=== PATIENT | female | born 1960 | race Caucasian/White ===

== ENCOUNTER 2016-08-04 14:55 | Emergency (ER) | payer MEDICAID ==
[~2016-08-04] VITALS: Ht 157.5 cm; Wt 122.5 kg
[~2016-08-04 14:55] MED LIST: CALC1TAB91 PO; FLUO20CA36 PO; GABA100C PO; HYDR-3326 PO; HYDR2TAB35 PO; LEVO50TA8 PO; RABE20TA5 PO; TRAM50TA2 PO; TRAZ-144 PO; [UNRECOGNIZED DRUG - CODE] PO
[2016-08-04] MEDS ORDERED: IV NS 0.9% 1,000 ML ONE (15:59)
[2016-08-04] MEDS ORDERED: METOCLOPRAMIDE HCL 10 MG/2 ML VIAL ONE (15:59)
[2016-08-04] MEDS ORDERED: MORPHINE SULFATE INJ 2 MG/ML DISP.SYRIN ONE (15:59)
[2016-08-04] MEDS ORDERED: diphenhydrAMINE HCL 50 MG/ML VIAL ONE (15:59)
[2016-08-04] MEDS ORDERED: IV SET PRIMARY 1 EA INFUS.SET MC ONE (15:59)
[2016-08-04] MEDS ORDERED: diphenhydrAMINE HCL 50 MG/ML VIAL IV ONE (16:00)
[2016-08-04] MEDS ORDERED: IV NS 0.9% 1,000 ML BAG IV ONE (16:00)
[2016-08-04] MEDS ORDERED: METOCLOPRAMIDE HCL 10 MG/2 ML VIAL IV ONE (16:00)
[2016-08-04] MEDS ORDERED: MORPHINE SULFATE INJ 2 MG/ML DISP.SYRIN IV ONE (16:00)
[2016-08-04 16:10] LABS: MONOCYTES # (AUTO) 0.5 /CMM (0.1-1.30); NEUTROPHILS # (AUTO) 3.5 /CMM (1.8-8.9)
[2016-08-04 16:15] LABS: BASOPHILS % (AUTO) 0.7 % (0.0-2.0); DIFF TOTAL % 100 %; EOSINOPHILS # (AUTO) 0.1 /CMM (0.0-0.7); EOSINOPHILS % (AUTO) 2.3 % (0.0-6.0); HEMATOCRIT 43 % (33-45); HEMOGLOBIN 14.4 g/dL (11.5-14.8); LYMPHOCYTES % (AUTO) 33.1 % (20.0-44.0); MEAN CORPUSCULAR HEMOGLOBIN 30 PG (26.0-33.0); MEAN CORPUSCULAR HGB CONC 34 g/dl (31.0-36.0); MEAN CORPUSCULAR VOLUME 89 fL (82-100); MONOCYTES % (AUTO) 7.4 % (2.0-12.0); NEUTROPHILS % (AUTO) 56.5 % (43.0-81.0); PLATELET COUNT (AUTO) 302 /CMM (150-450); WHITE BLOOD COUNT (AUTO) 6.1 K/uL (4.3-11.0)
[2016-08-04 16:20] LABS: CALCIUM, SERUM 8.8 mg/dL (8.5-10.1); CREATININE 0.7 mg/dL (0.6-1.3); POTASSIUM 3.8 mmol/L (3.5-5.1)
[2016-08-04 18:44] VITALS: BP 145/76
== END 2016-08-04 18:45 | disposition home or self-care (01) ==
LOC: ER 14:57
DX: R51 Headache (principal); R11.0 Nausea; E03.9 Hypothyroidism, unspecified; I10 Essential (primary) hypertension; F32.9 Major depressive disorder, single episode, unspecified; Z90.49 Acquired absence of other specified parts of digestive tract
CPT/HCPCS: 36415; 70450-TC; 80048-TC; 85025-TC; A4606; J1200; J2270; J2765; J7030; Z7610

== ENCOUNTER 2016-11-09 01:10 | Emergency (ER) | payer MEDICAID, OTHER ==
[~2016-11-09] VITALS: Ht 154.9 cm; Wt 136.1 kg
--- NOTE | 2016-11-09 01:15 | NUR ---
PT A/OX4 BREATHING EFFORTLESSLY ON ROOM AIR, PT STATES SHE WOKE UP IN THE MORNING AND COULDNT BREATHE, PT STATES SHE IS BREATHING FINE NOW BUT WAS REALLY SCARED AND STATES HER THROATS HURTS A LITTLE, PT ON MONITOR, IN GOWN, VSS, PT FAMILY AT BEDSIDE MD MADE AWARE WILL CONTINUE TO MONITOR.
[2016-11-09] MEDS ORDERED: diphenhydrAMINE HCL 25 MG CAPSULE PO ONE (02:30)
[2016-11-09] MEDS ORDERED: DEXAMETHASONE SOD PHOSPHATE 4 MG/ML VIAL IV ONE (02:30)
[2016-11-09] MEDS ORDERED: FAMOTIDINE (20 MG) 20 MG TABLET PO ONE (02:30)
--- NOTE | 2016-11-09 03:17 | NUR ---
Patient discharged to home in stable condition. Written and verbal after care instructions given. Patient verbalizes understanding of instruction. ambulatory with a steady gait noted. pt aaox4 no acute distress noted, resp even and unlabored. advice pt not to drive or operate any machinery due to pt was given benadryl. pt verbalize understanding.
[2016-11-09 03:19] VITALS: BP 133/75
== END 2016-11-09 03:20 | disposition home or self-care (01) ==
LOC: ER 01:10
DX: F41.9 Anxiety disorder, unspecified (principal); E03.9 Hypothyroidism, unspecified; F32.9 Major depressive disorder, single episode, unspecified; I10 Essential (primary) hypertension; Z90.49 Acquired absence of other specified parts of digestive tract
CPT/HCPCS: 71010-TC; A4606; Z7610

== ENCOUNTER 2017-11-16 18:03 | Emergency (ER) | payer OTHER ==
[~2017-11-16] VITALS: Ht 154.9 cm; Wt 132.9 kg
[~2017-11-16 18:03] MED LIST changes: -HYDR-3326 PO; +HYDR-3974 PO; +RABE20TA18 PO; -RABE20TA5 PO; -TRAZ-144 PO; +TRAZ-182 PO
[2017-11-16 18:05] VITALS: BP 134/75
== END 2017-11-16 18:55 | disposition home or self-care (01) ==
LOC: ER 18:06
DX: M54.6 Pain in thoracic spine (principal); R07.89 Other chest pain; I11.0 Hypertensive heart disease with heart failure; I50.9 Heart failure, unspecified; E03.9 Hypothyroidism, unspecified; F32.9 Major depressive disorder, single episode, unspecified; M19.90 Unspecified osteoarthritis, unspecified site; Z90.49 Acquired absence of other specified parts of digestive tract
CPT/HCPCS: A4606; Z7610

== ENCOUNTER 2018-06-22 09:27 | Emergency (ER) | payer OTHER ==
[~2018-06-22] VITALS: Ht 157.5 cm; Wt 129.3 kg
--- NOTE | 2018-06-22 09:40 | NUR ---
PT BIB SELF C/O cough and sob since last night. ALERT AND ORIENTED X 4, VERBALLY RESPONSIVE, AND ABLE TO MAKE NEEDS KNOWN. ON ROOM AIR, BREATHING EVENLY, AND UNLABORED. DR. DOSS AT BEDSIDE FOR EVAL. KEPT COMFORTABLE. WILL CONTINUE TO MONITOR ACCORDINGLY.
[2018-06-22] MEDS ORDERED: LEVOFLOXACIN (500MG) 500 MG TABLET ONE (09:47)
[2018-06-22] MEDS ORDERED: predniSONE 10 MG TABLET ONE (09:47)
--- NOTE | 2018-06-22 09:50 | NUR ---
PAGED RT FOR TREATMENT.
[2018-06-22] MEDS ORDERED: ALBUTEROL FS 2.5 MG/3 ML VIAL.NEB CONTNEB ONE (10:00)
[2018-06-22] MEDS ORDERED: IPRATROPIUM NEB FS 0.5 MG/2.5 ML AMPUL.NEB NEB ONE (10:00)
[2018-06-22] MEDS ORDERED: LEVOFLOXACIN (500MG) 500 MG TABLET PO ONE (10:00)
[2018-06-22] MEDS ORDERED: predniSONE 20 MG TABLET PO ONE (10:00)
[2018-06-22] MEDS ORDERED: ALBUTEROL FS 2.5 MG/3 ML VIAL.NEB ONE (10:24)
[2018-06-22] MEDS ORDERED: IPRATROPIUM NEB FS 0.5 MG/2.5 ML AMPUL.NEB ONE (10:24)
--- NOTE | 2018-06-22 10:36 | NUR ---
X-RAY TECH AT BEDSIDE FOR CXR.
[2018-06-22 11:57] VITALS: BP 135/70
--- NOTE | 2018-06-22 11:58 | NUR ---
Patient discharged to home in stable condition. Written and verbal after care instructions given. Patient verbalizes understanding of instruction.
== END 2018-06-22 11:58 | disposition home or self-care (01) ==
LOC: ER 09:28
DX: J20.9 Acute bronchitis, unspecified (principal); I10 Essential (primary) hypertension; F32.9 Major depressive disorder, single episode, unspecified; E03.9 Hypothyroidism, unspecified; Z98.890 Other specified postprocedural states; Z90.49 Acquired absence of other specified parts of digestive tract; Z60.2 Problems related to living alone
CPT/HCPCS: 71045; 94644; 99285; A4606; J7512; Z7610

== ENCOUNTER 2018-11-24 15:34 | Emergency (ER) | payer MEDICAID, OTHER ==
[~2018-11-24] VITALS: Ht 154.9 cm; Wt 133.4 kg
--- NOTE | 2018-11-24 16:30 | NUR ---
patient came in to the ER c/o low back pain. on room air, breathing evenly and unlabored. kept comfortable will continue to monitor accordingly.
[2018-11-24] MEDS ORDERED: KETOROLAC TROMETHAMINE INJ 30 MG/ML VIAL ONE (16:38)
[2018-11-24] MEDS ORDERED: DIAZEPAM 5 MG TABLET ONE (16:38)
[2018-11-24 16:47] VITALS: BP 120/65
--- NOTE | 2018-11-24 16:48 | NUR ---
Patient discharged to home in stable condition. Written and verbal after care instructions given. Patient verbalizes understanding of instruction.
[2018-11-24] MEDS ORDERED: KETOROLAC TROMETHAMINE INJ 60 MG/2 ML VIAL IM ONE (17:00)
[2018-11-24] MEDS ORDERED: DIAZEPAM 5 MG TABLET PO ONE (17:00)
== END 2018-11-24 16:48 | disposition home or self-care (01) ==
LOC: ER 15:34
DX: M54.5 Low back pain (principal); E66.01 Morbid (severe) obesity due to excess calories; I10 Essential (primary) hypertension; F32.9 Major depressive disorder, single episode, unspecified; E03.9 Hypothyroidism, unspecified; M19.90 Unspecified osteoarthritis, unspecified site; Z68.43 Body mass index [BMI] 50.0-59.9, adult; Z90.49 Acquired absence of other specified parts of digestive tract; Z98.890 Other specified postprocedural states; Z60.2 Problems related to living alone; Z79.899 Other long term (current) drug therapy
CPT/HCPCS: 96372; 99283; J1885

== ENCOUNTER 2019-07-01 12:13 | Emergency (ER) | payer MEDICAID ==
[~2019-07-01] VITALS: Ht 157.5 cm; Wt 132.4 kg
[2019-07-01] MEDS ORDERED: KETOROLAC TROMETHAMINE INJ 60 MG/2 ML VIAL IM ONE ×2 (13:26→13:30)
[2019-07-01] MEDS ORDERED: ACETAMINOPHEN ES 500 MG TABLET ONE (13:27)
[2019-07-01] MEDS ORDERED: ALBUTEROL FS 2.5 MG/3 ML VIAL.NEB CONTNEB ONE (13:30)
[2019-07-01] MEDS ORDERED: IPRATROPIUM NEB FS 0.5 MG/2.5 ML AMPUL.NEB ONE (13:30)
[2019-07-01] MEDS ORDERED: IPRATROPIUM NEB FS 0.5 MG/2.5 ML AMPUL.NEB NEB ONE (13:30)
[2019-07-01] MEDS ORDERED: ALBUTEROL FS 2.5 MG/3 ML VIAL.NEB ONE (13:30)
[2019-07-01] MEDS ORDERED: ACETAMINOPHEN ES 500 MG TABLET PO ONE (13:30)
--- NOTE | 2019-07-01 13:30 | NUR ---
PT BIB SELF C/O COUGH, CONGESTION, REPORTED SOB, HEADACHE. PT APPEARS IN NO RESP DISTRESS, RESP EVEN UNLABORED. SKIN WARM DRY. AMBULATORY STEADY GAIT. DENIES N/V/D. IN ER BED 10.
--- NOTE | 2019-07-01 13:44 | NUR ---
RT AT BEDSIDE
[2019-07-01 15:25] VITALS: BP 150/76
--- NOTE | 2019-07-01 15:30 | NUR ---
Patient discharged to home in stable condition. Written and verbal after care instructions given. Patient verbalizes understanding of instruction. AMBULATORY STEADY GAIT.
== END 2019-07-01 15:34 | disposition home or self-care (01) ==
LOC: ER 12:17
DX: S16.1XXA Strain of muscle, fascia and tendon at neck level, initial encounter (principal); J20.9 Acute bronchitis, unspecified; I10 Essential (primary) hypertension; I25.10 Atherosclerotic heart disease of native coronary artery without angina pectoris; F32.9 Major depressive disorder, single episode, unspecified; M81.0 Age-related osteoporosis without current pathological fracture; E03.9 Hypothyroidism, unspecified; Z90.49 Acquired absence of other specified parts of digestive tract; Z98.890 Other specified postprocedural states; Z60.2 Problems related to living alone; Z79.899 Other long term (current) drug therapy; X58.XXXA Exposure to other specified factors, initial encounter; Y93.89 Activity, other specified; Y92.89 Other specified places as the place of occurrence of the external cause; Y99.8 Other external cause status
CPT/HCPCS: 71046; 93005; 94644; 96372; 99285; J1885

== ENCOUNTER 2020-02-08 18:05 | Inpatient (IN) | payer MEDICAID ==
[~2020-02-08] VITALS: Ht 157.5 cm; Wt 151.6 kg
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
--- NOTE | 2020-02-08 18:50 | NUR ---
iv line started blood drawn and sent to lab.
--- NOTE | 2020-02-08 19:25 | NUR ---
report to distillery worker nurse jennifer for matthew.
[2020-02-08 19:29] LABS: BASOPHILS % (AUTO) 0.5 % (0.0-2.0); EOSINOPHILS % (AUTO) 1.5 % (0.0-6.0); HEMATOCRIT 42 % (33-45); LYMPHOCYTES # (AUTO) 2.1 /CMM (0.8-4.8); LYMPHOCYTES % (AUTO) 29.6 % (20.0-44.0); MEAN CORPUSCULAR HGB CONC 33 g/dl (31.0-36.0); MEAN CORPUSCULAR VOLUME 93 fL (82-100); MONOCYTES # (AUTO) 0.5 /CMM (0.1-1.30); MONOCYTES % (AUTO) 7.6 % (2.0-12.0); NEUTROPHILS # (AUTO) 4.3 /CMM (1.8-8.9); NEUTROPHILS % (AUTO) 60.8 % (43.0-81.0); PLATELET COUNT (AUTO) 288 /CMM (150-450); RED BLOOD CELL COUNT(AUTO) 4.51 MIL/uL (4.0-5.2)
[2020-02-08 19:37] LABS: CALCIUM, SERUM 9.6 mg/dL (8.5-10.1); CREATININE 0.9 mg/dL (0.6-1.3); POTASSIUM 3.4 mmol/L (3.5-5.1)
[2020-02-08] MEDS ORDERED: IBUPROFEN 600 MG TABLET PO ONE ×2 (19:57→20:00)
--- NOTE | 2020-02-08 20:06 | NUR ---
COVID SWAB COLLECTED AND SENT TO LAB
--- NOTE | 2020-02-08 20:48 | NUR ---
REPORT GIVEN TO AMOS
[2020-02-08] MEDS ORDERED: MORPHINE SULFATE INJ 2 MG/ML DISP.SYRIN IV PRN (21:00)
[2020-02-08] MEDS ORDERED: Z GUARD REMEDY 2 OZ OINT TP PRN (21:00)
[2020-02-08] MEDS ORDERED: ACETAMINOPHEN 325 MG TABLET PO PRN (21:00)
[2020-02-08] MEDS ORDERED: ENOXAPARIN SODIUM 40 MG/0.4 ML DISP.SYRIN SQ SCH (21:00)
[2020-02-08] MEDS ORDERED: ZOLPIDEM TARTRATE 5 MG TABLET PO PRN (21:00)
[2020-02-08] MEDS ORDERED: ONDANSETRON HCL/PF 4 MG/2 ML VIAL IVP PRN (21:00)
[2020-02-08] MEDS ORDERED: HYDROCODONE/APAP 5/325MG 1 EACH TABLET PO PRN (21:00)
[2020-02-08] MEDS ORDERED: MAG HYDROX/AL HYDROX/SIMETH 30 ML UDC PO PRN (21:00)
[2020-02-08] MEDS ORDERED: MAGNESIUM HYDROXIDE 30 ML UDC PO PRN (21:00)
[2020-02-08] MEDS ORDERED: POTASSIUM CHLORIDE 20 MEQ TAB.PRT.SR PO ONE (21:30)
[2020-02-08 22:00] VITALS: BP 148/96
[2020-02-08] MEDS ORDERED: METOPROLOL SUCCINATE 25 MG TAB.SR.24H PO SCH (22:00)
[2020-02-08] MEDS ORDERED: SIMVASTATIN 20 MG TABLET PO SCH (22:00)
--- NOTE | 2020-02-08 22:00 | NUR ---
CRIME SCENE TECHNICIAN ADMITTING NOTES PATIENT RECEIVED VIA GURNEY ACCOMPANIED BY ER STAFF. PATIENT AMBULATORY, A/O X 4, STABLE ON RA WITH BREATHING EVEN AND UNLABORED, NO SOB NOTED. NO SIGNS OF ACUTE DISTRESS. NO CURRENT COMPLAINTS OF PAIN OR DISCOMFORT. TELE MONITORS PLACED. BELONGINGS ACCOUNTED FOR. SKIN ASSESSMENT DONE. IV LOCATED ON R AC #20 PATENT AND INTACT. PATIENT ORIENTED TO ROOM AND STAFF. SAFETY PRECAUTIONS IN PLACE WITH BED IN LOWEST POSITION, CALL LIGHT WITHIN REACH, BREAKS ON, SIDE RAILS UP. WILL CONTINUE TO MONITOR THROUGHOUT THE NIGHT.
[2020-02-08 23:58] VITALS: BP 119/63
[2020-02-09] VITALS: BP 119/63
[2020-02-09 04:00] VITALS: BP 126/65
[2020-02-09 04:22] VITALS: BP 126/65
[2020-02-09] MEDS: NITROGLYCERIN 0.4 MG/TAB BOTTLE SL PRN ×2 (04:24→10:04)
--- NOTE | 2020-02-09 04:31 | NUR ---
BLEACHER LARD NOTES PATIENT COMPLAINING OF CHEST PAIN 01/13. PATIENT ALERT AND RESPONSIVE. PRN NITRO SL ADMINISTERED. WILL REASSESS IN 5MIN. MEDICATION KEPT IN PT CASETTE.
--- NOTE | 2020-02-09 06:45 | NUR ---
MS RN CLOSING NOTES PATIENT CURRENTLY RESTING IN BED A/O X 4. STABLE ON RA WITH BREATHING EVEN AND UNLABORED, NO SOB NOTED. NO SIGNS OF ACUTE DISTRESS. NO COMPLAINTS OF PAIN OR DISCOMFORT AT THE MOMENT. IV LOCATED ON R AC #20 SL. TELE MONITOR READING SR. SAFETY PRECAUTIONS IN PLACE WITH BED IN LOWEST POSITION, CALL LIGHT WITHIN REACH, BREAKS ON, SIDE RAILS UP. ALL NEEDS ATTENDED TO. WILL ENDORSE TO ONCOMING SHIFT.
[2020-02-09] MEDS ORDERED: LEVOTHYROXINE SODIUM 50 MCG TABLET PO SCH (07:00)
[2020-02-09 07:17] LABS: BASOPHILS % (AUTO) 0.5 % (0.0-2.0); EOSINOPHILS % (AUTO) 2.3 % (0.0-6.0); HEMATOCRIT 41 % (33-45); HEMOGLOBIN 13.7 g/dL (11.5-14.8); LYMPHOCYTES # (AUTO) 1.7 /CMM (0.8-4.8); LYMPHOCYTES % (AUTO) 35.2 % (20.0-44.0); MEAN CORPUSCULAR HGB CONC 34 g/dl (31.0-36.0); MEAN CORPUSCULAR VOLUME 93 fL (82-100); MONOCYTES # (AUTO) 0.4 /CMM (0.1-1.30); MONOCYTES % (AUTO) 8.1 % (2.0-12.0); NEUTROPHILS # (AUTO) 2.7 /CMM (1.8-8.9); NEUTROPHILS % (AUTO) 53.9 % (43.0-81.0); PLATELET COUNT (AUTO) 260 /CMM (150-450); RED BLOOD CELL COUNT(AUTO) 4.36 MIL/uL (4.0-5.2); WHITE BLOOD COUNT (AUTO) 4.9 K/uL (4.3-11.0)
[2020-02-09] MEDS ORDERED: PANTOPRAZOLE 40 MG TABLET.DR PO SCH (07:30)
--- NOTE | 2020-02-09 07:30 | NUR ---
RN MS NOTES PT IN BED, AWAKE, ALERT AND ORIENTED, NO COMPLAINT OF PAIN OR ANY DISCOMFORT, RESPIRATIONS NORMAL, CALL LIGHT WITHIN REACH, AMBULATES TO THE BATHROOM WITH STEADY GAIT, NEEDS ATTENDED.
[2020-02-09 07:44] LABS: CALCIUM, SERUM 8.9 mg/dL (8.5-10.1); CREATININE 0.8 mg/dL (0.6-1.3); MAGNESIUM 2.1 mg/dL (1.8-2.4); PHOSPHORUS 3.3 mg/dL (2.5-4.9); POTASSIUM 3.7 mmol/L (3.5-5.1)
[2020-02-09] MEDS ORDERED: METO25TA4 PO (07:50)
[2020-02-09] MEDS ORDERED: ISOS30TA6 PO (07:50)
[2020-02-09] MEDS ORDERED: ASPI-1152 PO (07:50)
[2020-02-09] MEDS ORDERED: HYDR25TA4 PO (07:50)
[2020-02-09] MEDS ORDERED: SIMV-46 PO (07:50)
[2020-02-09] MEDS ORDERED: PANT40TA4 PO (07:50)
[2020-02-09] MEDS ORDERED: FURO20TA4 PO (07:50)
[2020-02-09 07:52] LABS: THYROID STIMULATING HORMONE 3.703 uIU/mL (0.358-3.74)
[2020-02-09 08:00] VITALS: BP 124/66
[2020-02-09] MEDS ORDERED: FLUOXETINE HCL 20 MG CAPSULE PO SCH (09:00)
[2020-02-09] MEDS ORDERED: ISOSORBIDE MONONITRATE (30MG) 30 MG TAB.SR.24H PO SCH (09:00)
[2020-02-09] MEDS ORDERED: FUROSEMIDE 20 MG TABLET PO SCH (09:00)
[2020-02-09] MEDS ORDERED: HYDROCHLOROTHIAZIDE 25 MG TABLET PO SCH (09:00)
[2020-02-09] MEDS ORDERED: IV NS 0.9% 250 ML IV ONE (09:13)
[2020-02-09] MEDS ORDERED: IOHEXOL-350 100 ML VIAL IV ONE (09:13)
[2020-02-09] MEDS ORDERED: CT SWABBABLE VALVE TRANS SET 1 EA INFUS.SET MC ONE (09:13)
[2020-02-09] MEDS ORDERED: NITROGLYCERIN 4.9 GM SPRAY ONE (09:24)
[2020-02-09] MEDS ORDERED: IV NS 0.9% 500 ML IV ONE (09:41)
[2020-02-09 10:04] VITALS: BP 123/58
--- NOTE | 2020-02-09 15:52 | NUR ---
FLIGHT HOSTESS / DISCHARGE NOTES Patient informed of MD orders for discharge, and verbalized understanding. Alert and oriented to reality x 4. Respiration is even and easy with no SOB noted. No complain of pain or discomfort. Discharge instructions provided and verbalized understanding. Assisted to hospital lobby via wheelchair and fetched by family member via private transportation.
== END 2020-02-09 15:42 | disposition home or self-care (01) | DRG 199 ==
LOC: ER 18:05 → TELE 20:43 → MED 02-09 08:57
PROVIDERS: ADMIT Nurse Practitioner Acute Care; ATTEND Nurse Practitioner Acute Care
DX: I16.0 Hypertensive urgency (principal); E87.6 Hypokalemia; E66.01 Morbid (severe) obesity due to excess calories; F32.9 Major depressive disorder, single episode, unspecified; E03.9 Hypothyroidism, unspecified; M81.0 Age-related osteoporosis without current pathological fracture; Z90.49 Acquired absence of other specified parts of digestive tract; Z68.44 Body mass index [BMI] 60.0-69.9, adult; G47.33 Obstructive sleep apnea (adult) (pediatric); I25.10 Atherosclerotic heart disease of native coronary artery without angina pectoris
CPT/HCPCS: 36415; 71045-TC; 75574; 80048-TC; 80061-TC; 83735-TC; 84100-TC; 84443-TC; 84484-TC; 85025-TC; 87081-TC; 93307-TC; 93971-TC; G0378; J1650; J7040; J7050; Q9967

== ENCOUNTER 2021-05-06 13:24 | Inpatient (IN) | payer MEDICAID ==
[~2021-05-06] VITALS: Ht 157.5 cm; Wt 140.2 kg
[~2021-05-06 13:24] MED LIST changes: +ASPI-1420 PO; -CALC1TAB91 PO; +FURO20TA4 PO; -GABA100C PO; -HYDR-3974 PO; +HYDR25TA4 PO; -HYDR2TAB35 PO; +ISOS30TA86 PO; +METO25TA4 PO; +PANT40TA49 PO; -RABE20TA18 PO; +SIMV-46 PO; -TRAM50TA2 PO; -TRAZ-182 PO; -[UNRECOGNIZED DRUG - CODE] PO
--- NOTE | 2021-05-06 14:06 | NUR ---
DR MATSON AT THE BEDSIDE
--- NOTE | 2021-05-06 14:15 | NUR ---
PSYCH NP AT BEDSIDE
[2021-05-06] MEDS ORDERED: KETOROLAC TROMETHAMINE INJ 30 MG/ML VIAL IV ONE (14:30)
[2021-05-06 14:33] LABS: BASOPHILS % (AUTO) 0.5 % (0.0-2.0); EOSINOPHILS % (AUTO) 2.2 % (0.0-6.0); HEMATOCRIT 40 % (33-45); HEMOGLOBIN 13.5 g/dL (11.5-14.8); LYMPHOCYTES # (AUTO) 1.7 K/uL (0.8-4.8); MEAN CORPUSCULAR HGB CONC 34 g/dl (31.0-36.0); MEAN CORPUSCULAR VOLUME 93 fL (82-100); MONOCYTES # (AUTO) 0.4 K/uL (0.1-1.30); MONOCYTES % (AUTO) 8.3 % (2.0-12.0); NEUTROPHILS # (AUTO) 3.1 K/uL (1.8-8.9); PLATELET COUNT (AUTO) 248 K/uL (150-450); RED BLOOD CELL COUNT(AUTO) 4.26 MIL/uL (4.0-5.2); WHITE BLOOD COUNT (AUTO) 5.4 K/uL (4.3-11.0)
[2021-05-06] MEDS ORDERED: KETOROLAC TROMETHAMINE 15 MG/ML VIAL ONE (14:35)
[2021-05-06 15:07] LABS: CALCIUM, SERUM 8.5 mg/dL (8.5-10.1); CREATININE 0.8 mg/dL (0.6-1.3); POTASSIUM 3.3 mmol/L (3.5-5.1)
[2021-05-06] MEDS ORDERED: COLC0.6C3 PO (16:01)
[2021-05-06] MEDS ORDERED: NITR0.4T48 SL (16:01)
--- NOTE | 2021-05-06 16:37 | NUR ---
MOVE SHEET SUBMITTED AND CALLED FOR TELE BED.
--- NOTE | 2021-05-06 16:51 | NUR ---
COVID SWAB COLLECTED AND SENT TO LAB
--- NOTE | 2021-05-06 17:42 | NUR ---
[facility] CALLED NEWSPAPER REPORTER PAGED.
[2021-05-06] MEDS ORDERED: ASPIRIN 81 MG TAB.CHEW PO ONE (18:00)
[2021-05-06] MEDS ORDERED: ASPIRIN EC 81 MG TABLET.DR PO ONE (18:06)
[2021-05-06] MEDS ORDERED: ASPIRIN 81 MG TAB.CHEW ONE ×2 (18:09→18:13)
[2021-05-06] MEDS ORDERED: Z GUARD REMEDY 2 OZ OINT TP PRN (18:30)
[2021-05-06] MEDS ORDERED: MAG HYDROX/AL HYDROX/SIMETH 30 ML UDC PO PRN (18:30)
[2021-05-06] MEDS ORDERED: ONDANSETRON HCL/PF 4 MG/2 ML VIAL IVP PRN (18:30)
[2021-05-06] MEDS ORDERED: ZOLPIDEM TARTRATE 5 MG TABLET PO PRN (18:30)
[2021-05-06] MEDS ORDERED: MAGNESIUM HYDROXIDE 30 ML UDC PO PRN (18:30)
--- NOTE | 2021-05-06 18:30 | NUR ---
GOT BED 314-1
--- NOTE | 2021-05-06 18:32 | NUR ---
REPORT GIVEN TO NURSE ALI
--- NOTE | 2021-05-06 18:53 | NUR ---
PT TRANSFERRED TO 314-1 VIA ACLS PROTOCOL. VSS. ALL BELONGINGS WITH PT
--- NOTE | 2021-05-06 18:57 | NUR ---
HOT WATER HEATER INSTALLER NOTE RECEIVED PATIENT VIA GURNEY. PATIENT IS A/O X4. PATIENT IS BREATHING EVENLY AND NONLABORED ON ROOM AIR. NO SIGNS OF DISTRESS NOTED. VITALS T98.3, HR 53 BP 141/69 RR 18 O2 98%. PATIENT DENIES PAIN OR DISCOMFORT AT THIS TIME. PATIENT IS ON TELE MONITOR. SKIN ASSESSMENT PERFORMED SKIN C/D/I. PATIENT HAS IV ACCESS ON RAC # 20, PATENT AND INTACT. PATIENT WAS ORIENTED TO THE ROOM AND HOW TO USE THE CALL LIGHT. BELONGINGS ACCOUNTED FOR. SAFETY MEASURES IN PLACE, BED LOW LOCKED CALL LIGHT WITHIN REACH. WILL ENDORSE TO ONCOMING SHIFT.
[2021-05-06] MEDS ORDERED: NITROGLYCERIN 0.4 MG/TAB BOTTLE SL PRN (19:00)
--- NOTE | 2021-05-06 19:30 | NUR ---
Received report from Patrick AYON. Patient still sitting in bed with no signs of distress. C/o tolerable CP at this time per patient it is midsternal and constant. Also, c/o headache and blurry vision at time. will give ordered PRN tylenol. Educated patient that she will be bedrest for fall risk and to conserve energy/prevent flare up of symptoms. Patient NPO for now educated patient. Skin check done abrasion to L foot and FAROOQ discoloration and thickening of skin, neither with signs or symptoms of infection. Denies SOB at rest, lower lobe lung sounds slightly diminished. Bowel sounds active. Clear yellow urine. Patient on heart monitor is Sinus maddy with PVCs HR in 50s. Safety measures in place. Will continue to monitor.
[2021-05-06 20:00] VITALS: BP 109/56
[2021-05-06] MEDS: SIMVASTATIN 20 MG TABLET PO SCH (21:05)
[2021-05-06] MEDS: ENOXAPARIN SODIUM 40 MG/0.4 ML DISP.SYRIN SQ SCH (21:06)
[2021-05-06] MEDS: ACETAMINOPHEN 325 MG TABLET PO PRN (21:34)
[2021-05-07] VITALS: BP 111/58
[2021-05-07 04:00] VITALS: BP 130/72
[2021-05-07 06:34] LABS: BASOPHILS % (AUTO) 0.6 % (0.0-2.0); EOSINOPHILS % (AUTO) 2.5 % (0.0-6.0); HEMATOCRIT 39 % (33-45); HEMOGLOBIN 13.4 g/dL (11.5-14.8); LYMPHOCYTES # (AUTO) 2.1 K/uL (0.8-4.8); LYMPHOCYTES % (AUTO) 42.3 % (20.0-44.0); MEAN CORPUSCULAR HGB CONC 34 g/dl (31.0-36.0); MEAN CORPUSCULAR VOLUME 93 fL (82-100); MONOCYTES # (AUTO) 0.4 K/uL (0.1-1.30); MONOCYTES % (AUTO) 7.8 % (2.0-12.0); NEUTROPHILS # (AUTO) 2.3 K/uL (1.8-8.9); NEUTROPHILS % (AUTO) 46.8 % (43.0-81.0); PLATELET COUNT (AUTO) 237 K/uL (150-450); RED BLOOD CELL COUNT(AUTO) 4.19 MIL/uL (4.0-5.2); WHITE BLOOD COUNT (AUTO) 4.9 K/uL (4.3-11.0)
[2021-05-07] MEDS: LEVOTHYROXINE SODIUM 50 MCG TABLET PO SCH (06:41)
[2021-05-07] MEDS: PANTOPRAZOLE 40 MG TABLET.DR PO SCH (06:41)
[2021-05-07] MEDS: ACETAMINOPHEN 325 MG TABLET PO PRN ×2 (06:41→14:14)
--- NOTE | 2021-05-07 06:47 | NUR ---
Patient reports overnight that the headache she had subsided after PRN tylenol but came back so tylenol given this AM as well as per order. Other than that, patient reports minimal chest pressure does not describe it as pain. also states that her chest is itchy but no rash seen. On the monitor patient has been sinus maddy with PVCs with HR in the 50s with the lowest point at 43. Vital signs have been stable. Patient kept safe.
[2021-05-07 06:59] LABS: ALBUMIN 3.3 g/dL (3.4-5.0); CALCIUM, SERUM 8.5 mg/dL (8.5-10.1); CREATININE 0.7 mg/dL (0.6-1.3); MAGNESIUM 2.1 mg/dL (1.8-2.4); PHOSPHORUS 2.7 mg/dL (2.5-4.9); POTASSIUM 3.1 mmol/L (3.5-5.1); TOTAL PROTEIN, SERUM 6.9 g/dL (6.4-8.2)
--- NOTE | 2021-05-07 07:08 | NUR ---
RUBBER STAMPS AND DIES SUPERVISOR OPENING NOTES Received patient on bed, asleep. A/O x 4. On room air, breathing evenly and unlabored. No s/sx of respiratory distress noted. IV access on RAC #20G, SL, intact and patent. On tele monitoring showing sinus bradycardia at 47/min. Safety measures in place: bed in low, locked position; siderails up x 2, call light within reach. Will continue to monitor.
[2021-05-07 07:27] LABS: THYROID STIMULATING HORMONE 1.859 uIU/mL (0.358-3.74)
[2021-05-07 08:05] VITALS: BP 110/63
[2021-05-07] MEDS: FLUOXETINE HCL 20 MG CAPSULE PO SCH (08:22)
[2021-05-07] MEDS: COLCHICINE 0.6 MG TABLET PO SCH (08:22)
[2021-05-07] MEDS ORDERED: POTASSIUM CHLORIDE 20 MEQ TAB.PRT.SR PO ONE (08:30)
[2021-05-07] MEDS ORDERED: ASPIRIN EC 81 MG TABLET.DR PO SCH (09:00)
[2021-05-07] MEDS ORDERED: METOPROLOL SUCCINATE 25 MG TAB.SR.24H PO SCH (09:00)
[2021-05-07] MEDS ORDERED: IOHEXOL-350 100 ML VIAL IV ONE ×2 (09:21→09:48)
[2021-05-07] MEDS ORDERED: METOPROLOL TARTRATE INJ 5 MG/5 ML AMPUL IVP PRN (09:30)
[2021-05-07] MEDS ORDERED: NITROGLYCERIN 0.4 MG/TAB BOTTLE SL ONE (09:30)
[2021-05-07] MEDS ORDERED: IV NS 0.9% 250 ML IV ONE (09:48)
[2021-05-07] MEDS ORDERED: POTASSIUM CHLORIDE 20 MEQ TAB.PRT.SR PO SCH (10:00)
--- NOTE | 2021-05-07 10:18 | NUR ---
PT CONSENTED TO CTA heart; denies CP or SOB; AAOx4; in the middle of CTA; pt's IV infiltrated; warm packs applied, IV line DCd' a new PIV inserted without events on LAC gauge 18, procedure completed, NTG 0.4 mg Sl given, VSS; pt instructed to continue warm packs on R ac, report given to GABO Kauffman, informed of need to reasses R arm prev IV site and to continue warm packs.
[2021-05-07 16:36] VITALS: BP 122/69
[2021-05-07] MEDS: ENOXAPARIN SODIUM 40 MG/0.4 ML DISP.SYRIN SQ SCH (17:30)
--- NOTE | 2021-05-07 18:23 | NUR ---
MS RN CLOSING NOTE Patient resting comfortably in bed. A/O x 4, able to make needs known. Breathing evenly and unlabored on room air. No SOB or s/sx of respiratory distress noted. IV access on LAC #18G, SL, and ELENI #18G, SL, both intact and patent. Due meds given. Safety measures maintained: bed in low, locked position; siderails up x 2, call light within reach. Will endorse to supervisor carpenters nurse for CHANTAL.
--- NOTE | 2021-05-07 19:15 | NUR ---
MS/RN OPENING NOTES PT AWAKE IN BED, ON HER PHONE. A/OX4. SHE DENIES ANY PAIN/DISCOMFORT AT THIS TIME. RESPIRATIONS EVEN/UNLABORED. IV SITE: L-AC #18 INTACT/PATENT/FLUSHES WELL. PT IN NO ACUTE DISTRESS. SAFETY MEASURES IN PLACE, BED IN LOWEST LOCKED POSITION, S/R UPX2, CALL LIGHT WITHIN REACH. WILL CONT TO MONITOR.
[2021-05-07 20:00] VITALS: BP 118/63
[2021-05-07] MEDS: SIMVASTATIN 20 MG TABLET PO SCH (21:30)
[2021-05-08 06:26] LABS: BASOPHILS % (AUTO) 0.6 % (0.0-2.0); EOSINOPHILS % (AUTO) 2.1 % (0.0-6.0); HEMATOCRIT 41 % (33-45); HEMOGLOBIN 14.1 g/dL (11.5-14.8); LYMPHOCYTES # (AUTO) 1.5 K/uL (0.8-4.8); LYMPHOCYTES % (AUTO) 28.1 % (20.0-44.0); MEAN CORPUSCULAR HGB CONC 35 g/dl (31.0-36.0); MEAN CORPUSCULAR VOLUME 93 fL (82-100); MONOCYTES # (AUTO) 0.5 K/uL (0.1-1.30); MONOCYTES % (AUTO) 9.4 % (2.0-12.0); NEUTROPHILS # (AUTO) 3.1 K/uL (1.8-8.9); NEUTROPHILS % (AUTO) 59.8 % (43.0-81.0); PLATELET COUNT (AUTO) 199 K/uL (150-450); RED BLOOD CELL COUNT(AUTO) 4.36 MIL/uL (4.0-5.2); WHITE BLOOD COUNT (AUTO) 5.2 K/uL (4.3-11.0)
--- NOTE | 2021-05-08 06:53 | NUR ---
MS/RN CLOSING NOTES PT RESTING IN BED, EASILY AROUSABLE TO STIMULI, A/OX4. DENIES PAIN/DISCOMFORT AT THIS TIME. RESPIRATIONS EVEN/UNLABORED. NO ACUTE EVENTS NOTED DURING THE NIGHT. SAFETY MEASURES MAINTAINED. ALL NEEDS ATTENDED TO.
[2021-05-08 07:14] LABS: CALCIUM, SERUM 8.6 mg/dL (8.5-10.1); CREATININE 0.7 mg/dL (0.6-1.3); POTASSIUM 3.8 mmol/L (3.5-5.1)
--- NOTE | 2021-05-08 07:30 | NUR ---
RECEIVED PT. ALERT AND ORIENTED X4.VS STABLE.
[2021-05-08 08:00] VITALS: BP 111/60
[2021-05-08] MEDS: FLUOXETINE HCL 20 MG CAPSULE PO SCH (09:32)
[2021-05-08] MEDS: LEVOTHYROXINE SODIUM 50 MCG TABLET PO SCH (09:32)
[2021-05-08] MEDS: COLCHICINE 0.6 MG TABLET PO SCH (09:33)
[2021-05-08] MEDS: PANTOPRAZOLE 40 MG TABLET.DR PO SCH (09:33)
--- NOTE | 2021-05-08 10:30 | NUR ---
BRETT HEDDLER IN WITH PLANS FOR DC.
[2021-05-08] MEDS ORDERED: INFLUENZA VACCINE 2021-22 0.5 ML DISP.SYRIN IM ONE (13:00)
--- NOTE | 2021-05-08 15:20 | NUR ---
PT. MADE READY FOR DC.ALL PAPERS SIGNED.BELONGING SHEET SIGNED WELL.HEP LOCK OUT.TAKEN TO LOBBY VIA WALKING ESCORT,ACCOMPANIED BY SISTER AND [employer].
== END 2021-05-08 15:25 | disposition home or self-care (01) | DRG 425 ==
LOC: ER 13:35 → TELE 18:34 → MED 05-07 09:13
PROVIDERS: ADMIT Hospitalist; ATTEND Registered Nurse
DX: E87.6 Hypokalemia (principal); I11.0 Hypertensive heart disease with heart failure; I50.32 Chronic diastolic (congestive) heart failure; Z68.43 Body mass index [BMI] 50.0-59.9, adult; E03.9 Hypothyroidism, unspecified; E78.5 Hyperlipidemia, unspecified; M10.9 Gout, unspecified; M19.90 Unspecified osteoarthritis, unspecified site; Z20.822 Contact with and (suspected) exposure to COVID-19; F32.A Depression, unspecified; Z90.49 Acquired absence of other specified parts of digestive tract; Z79.899 Other long term (current) drug therapy; Z98.890 Other specified postprocedural states; Z79.82 Long term (current) use of aspirin; M81.0 Age-related osteoporosis without current pathological fracture; G89.29 Other chronic pain; G47.33 Obstructive sleep apnea (adult) (pediatric); E66.01 Morbid (severe) obesity due to excess calories; Z98.62 Peripheral vascular angioplasty status; R00.1 Bradycardia, unspecified
CPT/HCPCS: 36415; 71045-TC; 75574; 80048-TC; 80053-TC; 80061-TC; 83735-TC; 83880; 84100-TC; 84439-TC; 84443-TC; 84481; 84484-TC; 85025-TC; 85730-TC; 87081-TC; 93307-TC; 93880-TC; C9803; G0378; J1650; J1885; J7050; Q2036; Q9967

== ENCOUNTER 2021-11-12 16:01 | Emergency (ER) | payer MEDICAID ==
[~2021-11-12] VITALS: Ht 157.5 cm; Wt 136.1 kg
[~2021-11-12 16:01] MED LIST changes: +COLC0.6C3 PO; -FURO20TA4 PO; -HYDR25TA4 PO; -ISOS30TA86 PO; +NITR0.4T48 SL; -PANT40TA49 PO
[2021-11-12 16:21] VITALS: BP 146/80
[2021-11-12] MEDS ORDERED: AMOX-430 PO (16:49)
--- NOTE | 2021-11-12 17:07 | NUR ---
Patient discharged to home in stable condition. Written and verbal after care instructions given. Patient verbalizes understanding of instruction.
== END 2021-11-12 17:08 | disposition home or self-care (01) ==
LOC: ER 16:02
DX: H66.91 Otitis media, unspecified, right ear (principal); I10 Essential (primary) hypertension; E03.9 Hypothyroidism, unspecified; F32.A Depression, unspecified; M19.90 Unspecified osteoarthritis, unspecified site; Z90.49 Acquired absence of other specified parts of digestive tract; Z98.890 Other specified postprocedural states; Z60.2 Problems related to living alone; Z79.899 Other long term (current) drug therapy; Z79.82 Long term (current) use of aspirin
CPT/HCPCS: 82962-TC

== ENCOUNTER 2022-03-29 10:33 | Emergency (ER) | payer MEDICAID ==
[~2022-03-29] VITALS: Ht 162.6 cm; Wt 136.1 kg
[~2022-03-29 10:33] MED LIST changes: +AMOX-430 PO
[2022-03-29 10:41] VITALS: BP 122/66
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
[2022-03-29] MEDS ORDERED: ACETAMINOPHEN ES 500 MG TABLET ONE (11:25)
[2022-03-29] MEDS ORDERED: ACETAMINOPHEN ES 500 MG TABLET PO ONE (11:30)
--- NOTE | 2022-03-29 12:18 | NUR ---
Patient discharged to home in stable condition. Written and verbal after care instructions given. Patient verbalizes understanding of instruction.
== END 2022-03-29 12:19 | disposition home or self-care (01) ==
LOC: ER 10:35
DX: S92.525A Nondisplaced fracture of middle phalanx of left lesser toe(s), initial encounter for closed fracture (principal); I10 Essential (primary) hypertension; F32.A Depression, unspecified; M19.90 Unspecified osteoarthritis, unspecified site; E03.9 Hypothyroidism, unspecified; Z90.49 Acquired absence of other specified parts of digestive tract; Z60.2 Problems related to living alone; Z79.899 Other long term (current) drug therapy; V09.9XXA Pedestrian injured in unspecified transport accident, initial encounter; Y93.89 Activity, other specified; Y92.89 Other specified places as the place of occurrence of the external cause; Y99.8 Other external cause status
CPT/HCPCS: 73660-TC

== ENCOUNTER 2023-01-27 16:38 | Emergency (ER) | payer MEDICAID ==
[~2023-01-27] VITALS: Ht 154.9 cm; Wt 127.0 kg
--- NOTE | 2023-01-27 17:11 | NUR ---
pt seen by MD. pt C/O of headache and fever. Pt has covid and recieved medications. wanted a check up from MD. Cleared for FC
[2023-01-27 17:12] VITALS: BP 124/62; TEMP 99.8; O2SAT 98
--- NOTE | 2023-01-27 17:27 | NUR ---
Patient discharged to home in stable condition. Written and verbal after care instructions given. Patient verbalizes understanding of instruction.
== END 2023-01-27 17:28 | disposition home or self-care (01) ==
LOC: ER 17:05
DX: U07.1 COVID-19 (principal); I10 Essential (primary) hypertension; F32.A Depression, unspecified; E03.9 Hypothyroidism, unspecified; Z90.49 Acquired absence of other specified parts of digestive tract; Z98.890 Other specified postprocedural states; Z79.82 Long term (current) use of aspirin; Z79.899 Other long term (current) drug therapy; Z60.2 Problems related to living alone

== ENCOUNTER 2023-06-21 16:47 | Emergency (ER) | payer MEDICAID ==
[~2023-06-21] VITALS: Ht 157.5 cm; Wt 91.2 kg
[2023-06-21 16:57] VITALS: TEMP 98.4
[2023-06-21] MEDS ORDERED: POLYETHYLENE GLYCOL 3350 17 GM POWD.PACK PO ONE (19:00)
[2023-06-21] MEDS ORDERED: DOCUSATE SODIUM 100 MG CAPSULE PO SCH (19:00)
[2023-06-21] MEDS ORDERED: SENNOSIDES/DOCUSATE SODIUM 1 TAB TABLET PO SCH (19:00)
[2023-06-21] MEDS ORDERED: DOCUSATE SODIUM 100 MG CAPSULE PO ONE (19:27)
[2023-06-21] MEDS ORDERED: SENNOSIDES 8.6 MG TABLET ONE (19:27)
[2023-06-21] MEDS ORDERED: POLY17PO4 PO (19:54)
[2023-06-21] MEDS ORDERED: DOCU-141 PO (19:54)
[2023-06-21] MEDS ORDERED: SENN-261 PO (19:54)
[2023-06-21] MEDS ORDERED: HYDROCORTISONE OINT 1% 28.35 GM TUBE TP SCH (20:00)
[2023-06-21 20:11] VITALS: BP 142/73; O2SAT 100
== END 2023-06-21 20:12 | disposition home or self-care (01) ==
LOC: ER 16:47
DX: K59.00 Constipation, unspecified (principal); I10 Essential (primary) hypertension; Z90.49 Acquired absence of other specified parts of digestive tract; F32.A Depression, unspecified; E03.9 Hypothyroidism, unspecified; Z79.82 Long term (current) use of aspirin; Z79.899 Other long term (current) drug therapy; Z60.2 Problems related to living alone

== ENCOUNTER 2024-12-14 19:09 | Emergency (ER) | payer MEDICAID ==
[~2024-12-14] VITALS: Ht 157.5 cm; Wt 91.2 kg
[~2024-12-14 19:09] MED LIST changes: +DOCU-141 PO; +POLY17PO4 PO; +SENN-261 PO
[2024-12-14] MEDS ORDERED: IBUPROFEN 600 MG TABLET ONE (20:00)
[2024-12-14] MEDS: IBUPROFEN 600 MG TABLET PO ONE (20:05)
[2024-12-14] MEDS ORDERED: IBUP-1953 PO (21:06)
[2024-12-14 21:41] VITALS: BP 140/81; TEMP 98.5; O2SAT 99
== END 2024-12-14 21:41 | disposition home or self-care (01) ==
LOC: ER 19:11
DX: M54.2 Cervicalgia (principal); M25.512 Pain in left shoulder; E03.9 Hypothyroidism, unspecified; F32.A Depression, unspecified; I10 Essential (primary) hypertension; Z79.82 Long term (current) use of aspirin; Z79.899 Other long term (current) drug therapy; Z90.49 Acquired absence of other specified parts of digestive tract; Z60.2 Problems related to living alone; V49.3XXA Car occupant (driver) (passenger) injured in unspecified nontraffic accident, initial encounter; Y93.89 Activity, other specified; Y92.415 Exit ramp or entrance ramp of street or highway as the place of occurrence of the external cause; Y99.8 Other external cause status
CPT/HCPCS: 72040-TC; 73030-TC; 73060-TC

== ENCOUNTER → 2025-03-21 | Emergency (ER) | payer MEDICAID ==
[~2025-03-21] VITALS: Ht 157.5 cm; Wt 74.4 kg
[~2025-03-21] MED LIST changes: +ALBU18HF2 IH; +AMLO2.5T4 PO; +BIOT10006 PO; +CALC-1026 PO; +CHOL500062 PO; +CT SWABBABLE VALVE TRANS SET 1 EA INFUS.SET MC ONE; +CYCL30DR EACHEYE; +FLUT1BLS IH; +IBUP-1953 PO; +IOHEXOL-300 100 ML VIAL IV ONE; +IV NS 0.9% 250 ML IV ONE; +KETOROLAC TROMETHAMINE INJ 30 MG/ML VIAL ONE; +MULT-754 PO
[2025-03-21 14:39] LABS: PLATELET COUNT (AUTO) 228 K/uL (150-450); RED BLOOD CELL COUNT(AUTO) 4.49 MIL/uL (4.0-5.2); RED CELL DISTRIBUTION WIDTH 13.7 % (11.5-15.0); WHITE BLOOD COUNT (AUTO) 5.3 K/uL (4.3-11.0)
[2025-03-21 14:44] LABS: APPEARANCE,URINE CLEAR (CLEAR); BLOOD, URINE NEGATIVE Ery/uL (NEGATIVE); LEUKOCYTE ESTERASE ,URINE NEGATIVE (NEGATIVE); NITRITE, URINE NEGATIVE (NEGATIVE); UGLUCOSE NEGATIVE (NEGATIVE)
[2025-03-21] MEDS: IV NS 0.9% 500 ML BAG IV ONE (14:50)
[2025-03-21] MEDS: PANTOPRAZOLE 40 MG VIAL IV ONE (14:51)
[2025-03-21] MEDS: ONDANSETRON HCL/PF 4 MG/2 ML VIAL IVP ONE (14:53)
[2025-03-21] MEDS: KETOROLAC TROMETHAMINE 15 MG/ML VIAL IV ONE (14:55)
[2025-03-21 15:01] LABS: ASPARTATE AMINOTRANSFERASE 41.0 U/L (15-37); CALCIUM, SERUM 9.6 mg/dL (8.5-10.1); CREATININE 0.8 mg/dL (0.6-1.3); SODIUM SERUM 142.0 mmol/L (136-145); TOTAL PROTEIN, SERUM 7.2 g/dL (6.4-8.2); UREA NITROGEN, BLOOD 16.0 mg/dL (7-18)
[2025-03-21 20:27] VITALS: BP 14/68; TEMP 98; O2SAT 98
== END | disposition left against medical advice (07) ==
LOC: ER 14:12
DX: K56.600 Partial intestinal obstruction, unspecified as to cause (principal); R11.0 Nausea; E03.9 Hypothyroidism, unspecified; F32.A Depression, unspecified; I10 Essential (primary) hypertension; Z79.51 Long term (current) use of inhaled steroids; Z79.621 Long term (current) use of calcineurin inhibitor; Z79.82 Long term (current) use of aspirin; Z79.899 Other long term (current) drug therapy; Z90.49 Acquired absence of other specified parts of digestive tract; Z98.84 Bariatric surgery status; Z86.79 Personal history of other diseases of the circulatory system; Z87.39 Personal history of other diseases of the musculoskeletal system and connective tissue; Z60.2 Problems related to living alone
CPT/HCPCS: 99285; 74177; 96374; 96375; 96361; 85025; 80048; 83605; 83690; 80076; 81003; 36415; J1885; J2405; J7050; J7040; J2470; Q9967